=== PATIENT | female | born 1960 | race Caucasian/White ===

== ENCOUNTER 2018-06-22 05:49 | Inpatient (IN) | payer OTHER ==
[~2018-06-22] VITALS: Ht 157.5 cm; Wt 66.0 kg
[2018-06-22] VITALS (38 sets, daily range): BP systolic 99–140; BP diastolic 44–75; PULSE 60–94; RESP 11–38; Ht 157.5 cm; Wt 66.0 kg
--- NOTE | 2018-06-22 07:17 | PREAC ---
Date/Time of Note Date/Time of Note DATE: 06/22/18 TIME: 07:16 Anesthesia Eval and Record Evaluation Time Pre-Procedure Interview DATE: 06/22/18 TIME: 07:16 Age 57 Sex female NPO: 8 hrs Preoperative diagnosis Cervical prolapse Planned procedure ANTONELLA, BSO, vaginal vault suspension Past Medical History Past Medical History: Includes GI: Obesity Surgery & Anesthesia Issues No known issue Meds Anticoagulation: No Beta Evangelina within 24 hr: No Reason Beta Evangelina not given: Pt. not on B-Evangelina No Active Prescriptions or Reported Meds Meds reviewed: Yes Allergies Coded Allergies: No Known Allergy (Unverified , 06/22/18) Allergies Reviewed: Yes Labs/Studies Labs Reviewed: Reviewed by anesthesiologist Blood Bank Test 06/21/18 11:59 Antibody Screen NEGATIVE Blood Type O POSITIVE test: Negative Pre-procedure Exam Last vitals Vital Signs Date Temp Pulse Resp B/P (MAP) Pulse Ox O2 O2 Flow FiO2 Time Delivery Rate 06/22/18 98.6 81 18 105/61 97 Room Air 07:13 (76) Airway: Adequate mouth opening Mallampati: Mallampati II Teeth: Normal Lung: Normal Heart: Normal ASA Physical Status ASA physical status: 2 Emergency: None Planned Anesthetic General/MAC: ETT Planned Pain Management SHORT STORY WRITER Pre-operative Attestations Prior to commencing anesthesia and surgery, the patient was re-evaluated, there was verification of: *The patient's identity *The results of appropriate recent lab work and preoperative vital signs *The above evaluation not changing prior to induction *Anesthetic plan, risk benefits, alternative and complications discussed with patient/family; questions answered; patient/family understands, accepts and wishes to proceed. DAISY VEGA MD Jun 22, 2018 07:16
[2018-06-22] MEDS ORDERED: SUCCINYLCHOLINE CHLORIDE 100 MG/5 ML SYG IV ONE (07:28)
[2018-06-22] MEDS ORDERED: MEPERIDINE 100 MG INJ ONE (07:28)
[2018-06-22] MEDS ORDERED: LIDOCAINE 2% (SDV) 5 ML INJ ONE (07:28)
[2018-06-22] MEDS ORDERED: ROCURONIUM 50 MG INJ ONE (07:28)
[2018-06-22] MEDS ORDERED: GLYCOPYRROLATE 0.4 MG INJ ONE ×2 (07:28→07:56)
[2018-06-22] MEDS ORDERED: NEOSTIGMINE 3 MG/3 ML SYRINGE ONE ×2 (07:28→07:57)
[2018-06-22] MEDS ORDERED: PROPOFOL 20 ML ONE (07:28)
--- NOTE | 2018-06-22 07:54 | PREOPHP ---
DATE OF ADMISSION: 06/22/2018 HISTORY OF PRESENT ILLNESS: This is a 57-year-old or lady, 4, para 3 with 1 . Her l ast normal menstrual period was at the age of 51. She was admitted for exploratory laparotomy, total abdominal hysterectomy, bilateral salpingo-oophorectomy, and vaginal vault suspension. This patient is known to have cervical prolapse and first degree cystocele but the uterus is really not prolapsed . This is very uncomfortable for the cervix to be coming out at the introitus. She has lower abdomi nal pains and low back pains. So she wanted to have the above procedure. The procedures were explai toshia to the patient and she understood everything totally. The risks, benefits and alternatives were discussed with her as well as the alternative of pessary was discussed, but refused. PAST PERSONAL HISTORY: No history of diabetes, TB, asthma. ALLERGIES: NO ALLERGIES. SOCIAL HISTORY: Patient does not smoke. She does not drink. She does not take any drugs. GYNECOLOGIC HISTORY: She had menarche at the age of 17, every 28 days interval, 3 to 4 days duration , and moderate in amount. FAMILY HISTORY: Mother has high blood pressure, grandmother on the mother's side had a stroke. Jeremiah perrin had cancer. She is 4, para 3. She had 3 normal deliveries. REVIEW OF SYSTEMS: CARDIOVASCULAR: No chest pains. RESPIRATORY: No cough. GASTROINTESTINAL: No diarrhea, no vomiting. GENITOURINARY: No dysuria. PHYSICAL EXAMINATION: GENERAL: Reveals a conscious, coherent lady and in no acute distress. VITAL SIGNS: Her blood pressure 120/80, pulse rate 80 per minute, respirations 16 per minute. BREASTS, HEART AND LUNGS: Within normal limits. ABDOMEN: Soft. No organomegaly. PELVIC: Revealed the cervix to be at the introitus. Uterus of normal size and no prolapse of the ut erus. A first degree cystocele noted. RECTAL: Confirmed the pelvic findings. EXTREMITIES: No pedal edema. ADMITTING DIAGNOSES: Chronic pelvic pain, cervical prolapse and cystocele. PLAN: The patient was planned to have the above procedure. Dictated By: GURDEEP SHINE/YAMILA Conf#: [id number] DID#: [id number]
[2018-06-22] MEDS ORDERED: CEFAZOLIN 1 GM INJ ONE (07:56)
[2018-06-22] MEDS ORDERED: ONDANSETRON 4 MG INJ ONE (07:57)
[2018-06-22] MEDS ORDERED: METOCLOPRAMIDE 10 MG INJ ONE (07:58)
[2018-06-22] MEDS ORDERED: KETOROLAC 30 MG INJ IV PRN (08:30)
[2018-06-22] MEDS ORDERED: ONDANSETRON 4 MG INJ IV PRN ×2 (08:30→10:30)
[2018-06-22] MEDS ORDERED: DIPHENHYDRAMINE 50 MG INJ IV PRN (08:30)
[2018-06-22] MEDS ORDERED: OXYCODONE/ACETAMINOPHEN (5/325) TAB PO PRN ×2 (08:30)
[2018-06-22] MEDS ORDERED: NALOXONE (0.4 MG/ML) INJ IV PRN (08:30)
[2018-06-22] MEDS ORDERED: HYDROmorphONE 0.2 MG/ML PCA IV SCH (08:30)
--- NOTE | 2018-06-22 09:06 | SIPON ---
Date/Time of Note Date/Time of Note DATE: 06/22/18 TIME: 09:04 Operative Report Preoperative Diagnosis CERVICAL PROLAPSE CHRONIC PELVIC PAIN CYSTOCELE 1ST DEGREE Postoperative Diagnosis CERVICAL PROLAPSE CHRONIC PELVIC PAIN CYSTOCELE 1ST DEGREE PELVIC ADHESION Operation/Procedure Performed TOTAL ABDOMINAL HYSTERECTOMY BILATERAL SALPHINGO OOPHORECTOMY VAGINAL VAULT SUSPENSION LYSIS OF ADHESION Surgeon see signature line financial sales assistant DR GURJIT AHSBY Anesthesia: general Estimated blood loss: 50 - 100 ml's Transfusion Required none Specimen CERVIX BODY OF UTERUS BOTH TUBES AND OVARIES Grafts/Implants none Complications none GURDEEP WALTON MD Jun 22, 2018 09:06
[2018-06-22] MEDS ORDERED: FENTAnyl 50 MCG/ML VIAL ONE (10:25)
--- NOTE | 2018-06-22 10:27 | PAC ---
Date/Time of Note Date/Time of Note DATE: 06/22/18 TIME: 10:27 Post-Anesthesia Notes Post-Anesthesia Note Last documented vital signs Vital Signs Date Temp Pulse Resp B/P (MAP) Pulse Ox O2 O2 Flow FiO2 Time Delivery Rate 06/22/18 80 19 137/71 100 Nasal 10:02 (93) Cannula 06/22/18 2.0 09:42 06/22/18 98.0 09:15 Activity: WNL Respiratory function: WNL Cardiovascular function: WNL Mental status: Baseline Pain reasonably controlled: Yes Hydration appropriate: Yes Nausea/Vomiting absent: Yes DAISY VEGA MD Jun 22, 2018 10:27
[2018-06-22] MEDS ORDERED: FENTAnyl 50 MCG/ML VIAL IV PRN ×2 (10:30)
[2018-06-22] MEDS: LACTATED RINGER'S 1,000 ML IV SCH ×3 (13:00→20:29)
[2018-06-23 00:14] VITALS: BP 112/55; PULSE 86; RESP 18
[2018-06-23] MEDS: LACTATED RINGER'S 1,000 ML IV SCH ×3 (03:27→20:19)
[2018-06-23 04:04] VITALS: BP 104/50; PULSE 92; RESP 18
[2018-06-23] MEDS ORDERED: MAGNESIUM HYDROXIDE 30ML CUP PO ONE ×3 (06:00→17:00)
[2018-06-23] MEDS ORDERED: BISACODYL 10 MG SUPP PR ONE ×3 (06:00→17:00)
[2018-06-23 07:27] VITALS: BP 127/56; PULSE 98; RESP 18
--- NOTE | 2018-06-23 07:41 | OPPN ---
Date/Time of Note Date/Time of Note DATE: 06/23/18 TIME: 07:37 Anesthesia Follow up Anesthesia Follow up Last documented vital signs Vital Signs Date Temp Pulse Resp B/P (MAP) Pulse Ox O2 O2 Flow FiO2 Time Delivery Rate 06/23/18 98.9 98 18 127/56 99 07:27 (79) 06/22/18 Nasal 2.0 20:20 Cannula Respiratory function: WNL Cardiovascular function: WNL Comments The patient's postoperative pain is in good control with TIP PUNCHER. Vital signs are stable. TIP PUNCHER will be continued until this evening. DAISY VEGA MD Jun 23, 2018 07:41
[2018-06-23] MEDS ORDERED: HYDROCODONE/APAP (5/325) TAB PO PRN ×2 (09:30)
[2018-06-23] MEDS ORDERED: IBUPROFEN 800 MG TAB PO PRN (09:30)
[2018-06-23] MEDS: ONDANSETRON 4 MG INJ IV PRN (12:28)
[2018-06-23 14:23] VITALS: BP 113/55; PULSE 95; RESP 18
[2018-06-23 20:53] VITALS: BP 115/56; PULSE 93; RESP 19
[2018-06-24 02:25] VITALS: BP 110/58; PULSE 98; RESP 20
[2018-06-24 07:40] VITALS: BP 112/64; PULSE 100; RESP 18
[2018-06-24] MEDS: LACTATED RINGER'S 1,000 ML IV SCH (09:30)
[2018-06-24] MEDS: ONDANSETRON 4 MG INJ IV PRN (11:53)
--- NOTE | 2018-06-24 13:18 | OPR ---
DATE OF OPERATION: 06/22/2018 PREOPERATIVE DIAGNOSES: 1. Cervical prolapse. 2. First degree cystocele. 3. Chronic pelvic pain. 4. Rule out pelvic adhesions. POSTOPERATIVE DIAGNOSES: 1. Cervical prolapse. 2. First degree cystocele. 3. Chronic pelvic pain. 4. Rule out pelvic adhesions. SURGEON: Gurdeep Enriquez MD INSPECTOR WATCH PARTS: Wilian Licea MD ANESTHESIA: General. OPERATIONS PERFORMED: Exploratory laparotomy, total abdominal hysterectomy and bilateral salpingo-oo phorectomy, vaginal vault suspension and lysis of pelvic adhesions. OPERATIVE TECHNIQUE: Under general anesthesia, the patient was prepped and draped in the usual fashi on for abdominal surgery. After checking for the effect of the anesthesia, a Pfannenstiel incision a bout 12 cm skin incision was performed. The incision was carried from the skin up to the fascia. Up on opening the skin up to the fascia, small blood vessels were noted to be oozing and these were all cauterized. Fascia was opened transversely followed by splitting the muscles vertically and the lacey toneum vertically. Upon opening the abdominal cavity, there were some omental adhesions noted on the anterior parietal peritoneum. All these adhesions were lysed by sharp and blunt dissection. Then, the uterus was noted to be of normal size. Both ovaries were atrophic and both tubes were healthy-lo oking. Then, the self-retaining retractor was put in place and then the bladder blade was put in roula ce. Then, the bowels were packed away from the operative field with the aid of 4 wet lap sponges and the upper blade was put in place. Two 8-inch Kochers were placed, 1 at each paratubal and paraovari an ligament for traction. Then, the left round ligament was grasped with 2 Kochers and cut. A stick tie with 0 Vicryl was used and tagged. The left broad ligament was skeletonized for the development of the bladder flap. Then, the left infundibulopelvic ligament was grasped with 2 Scarlett clamps and pulled back with a straight Zuleyka and cut. At first, a free tie with 0 Vicryl was used followed by Scarlett suture. Bleeders were checked and there was no bleeding noted. Same thing was done on the r ight side. The right round ligament was grasped with 2 Kochers and cut. A stick tie with 0 Vicryl w as used and tagged. The right broad ligament was skeletonized for the development of the bladder fla p. Then, the right infundibulopelvic ligament was grasped with 2 Scarlett clamps and pulled back with a straight Zuleyka and cut. At first, a free tie with 0 Vicryl was used followed by Scarlett suture. B leeders were checked and there was no bleeding noted. Once again, the broad ligament on both sides w as skeletonized for the development of the bladder flap. Then, the bladder was from the ce rvix by sharp and blunt dissection. Then, the left uterine vessels were brought to view. The left u terine vessels were grasped with 2 Scarlett clamps and pulled back with straight Zuleyka and cut. A sti ck tie with 0 Vicryl was used on each clamp. Bleeders were checked and there was no bleeding noted. Same thing was done on the right side. Then once again, the bladder was from the cervix b y sharp and blunt dissection. Two more Kochers were placed at each paracervical tissue on the left a nd right side and on each clamp, the tissue was cut and a stick tie with 0 Vicryl was used. Then, th e body of the uterus was excised. The pelvis was noted to be very deep. The remaining cervix was gr asped with a single tooth tenaculum. Once again, the bladder was from the cervix by sharp and blunt dissection. About 7 Kochers were placed at each paracervical tissue on the left and right side and on each clamp the tissue was cut and a stick tie with 0 Vicryl was used. Then, the cervicov aginal angle was brought to view. Then, the cervicovaginal angle was clamped with 2 Scarlett clamps an d the cervix was excised. The stump was closed with Scarlett suture on each clamp. A 0 Vicryl was use d. Then, once again to reinforce the suture on the clamp, continuous suture with 0 Vicryl was used. Another 2 layers were put in. The right angle of the vagina was sutured with the right paracervical tissue and after checking for any bleeders in which there were none, in turn tied with the right rou nd ligament for vaginal vault suspension. Same thing was done on the left side. Irrigation was done to check for any bleeders and there was no bleeding noted. After correct sponge count, needle count and instrument count then after checking all the stumps to check for any bleeders in which there wer e none, then the abdomen was closed in the usual fashion using 0 Vicryl for the peritoneum, 0 Vicryl for the muscles. For the fascia, 0 Vicryl continuous stitch was used followed by few [id number] sutures. For the subcutaneous tissue, it was closed with 3-0 Vicryl and the skin was closed with 3- 0 Vicryl, subcuticular suture was used. The patient tolerated the procedure well. Estimated blood l oss was about 100. Vital signs were stable during and after the procedure. Dictated By: GURDEEP SHINE/YAMILA Conf#: [id number] DID#: [id number]
== END 2018-06-24 12:48 | disposition home or self-care (01) | DRG 743 ==
LOC: REC 05:49 → MS1 11:22
PROVIDERS: ADMIT Obstetrics & Gynecology; ATTEND Obstetrics & Gynecology
PROC: 0UT70ZZ Resection of Bilateral Fallopian Tubes, Open Approach (ICD-10-PCS; 2018-06-22)
PROC: 0UT20ZZ Resection of Bilateral Ovaries, Open Approach (ICD-10-PCS; 2018-06-22)
PROC: 0UN Female Reproductive System, Release (ICD-10-PCS; 2018-06-22)
PROC: 0USG0ZZ Reposition Vagina, Open Approach (ICD-10-PCS; 2018-06-22)
PROC: 0UT90ZZ Resection of Uterus, Open Approach (ICD-10-PCS; principal; 2018-06-22 07:30)
DX: N81.2 Incomplete uterovaginal prolapse (principal); N80.0 Endometriosis of uterus; R10.2 Pelvic and perineal pain; N73.6 Female pelvic peritoneal adhesions (postinfective)
CPT/HCPCS: 80053; 84702; 85025; 86850; 86900; 86901; 87086; 88305; J0690; J1170; J1885; J2175; J2405; J2710; J2765; J3010; J7120